=== PATIENT | female | born 1975 | race Asian ===

== ENCOUNTER 2025-10-06 07:01 | Day surgery (SDC) | payer OTHER ==
[2025-09-30 09:57] VITALS: BMI 22.4
[2025-10-06] MEDS ORDERED: PROPOFOL 40 ML ONE (08:38)
[2025-10-06] MEDS ORDERED: PROPOFOL 20 ML ONE (09:34)
== END 2025-10-06 11:06 | disposition home or self-care (01) ==
LOC: CSHSDC 07:01
PROVIDERS: ATTEND Surgery
PROC: 0DJD8ZZ Inspection of Lower Intestinal Tract, Via Natural or Artificial Opening Endoscopic (ICD-10-PCS; principal; 2025-10-06)
DX: Z12.11 Encounter for screening for malignant neoplasm of colon (principal); R35.0 Frequency of micturition; Z98.51 Tubal ligation status
CPT/HCPCS: J2704